=== PATIENT | female | born 1985 | race African-American/Black ===

== ENCOUNTER 2018-03-10 15:43 | Observation (INO) ==
[2018-03-10] MEDS ORDERED: PHENERGAN INJ 25 MG IV ONE (17:13)
[2018-03-10] MEDS ORDERED: NS 1000 ML 1,000 ML IV ONE ×2 (17:13→20:25)
[2018-03-10] MEDS ORDERED: DEMEROL INJ IVP ONE (17:13)
--- NOTE | 2018-03-10 17:15 | DR.GENAD ---
HPI - HPI Comment HPI Comment: PAIN DIFFUSE, NON RADIATING ASSOCIATED WITH WEAKNESS. GETTING WORSE. NO FEVER OR DYSURIA. NOT HOLDING MEDS OR FLUIDS. - Complaint/Symptoms Chief Complaint Doctors Comments: ABDOMINAL PAIN WITH N/V/D TIMES 3 DAYS Chief Complaint:: PATIENT STATED THAT SHE BEING HAVING N/V/D THAT STARTED THIS MORNING. SHE STATED THAT SHE HAS NOT BEEN ABLE TO EAT OR DRINK IN 3 DAYS. SHE STATED THAT SHE STARTED HAVING ABD. PAIN TIMES 3 DAYS. - Nurses notes reviewed Nurses Notes Review: Yes - Source History Provided: Patient, EMS - Mode of Arrival Mode of Arrival: Stretcher - Timing Onset of Chief Complaint: 03/07/18 Came on: Suddenly - Duration Duration: Constant Duration: Days - Severity Severity: Moderate PMH - PMH Past Medical History: Yes Past Medical History: Anemia Past Surgical History: Yes Surgical History: - Family History History of Family Medical Conditions: Yes Family Medical History: Diabetes Mellitus, Cancer, OR, Hypertension - Social History Does patient currently use any type of tobacco product: Yes Have you used tobacco products in the last 12 months: Yes Type of Tobacco Use: Cigarettes Does any household member use tobacco: No Alcohol Use: None Do you use any recreational Drugs:: No Lives With: Family Lives Where: Home - infectious screening In the last 2 months have you had wt loss of >10#?: NO Have you had fever, night sweats or hemotysis?: No Have you traveled outside the country in the last 6 months?: No Isolation: Standard ROS - Review of Systems Constitutional: Weakness, Fatigue. negative: Chills, Fever Eyes: No Symptoms Reported. negative: Eye Pain, Discharge ENTM: negative: Ear Pain, Nose Discharge, Nose Congestion, Throat Pain Respiratoy: negative: Productive Cough, Non-Productive Cough, Short of Breath, Wheezing, Hemoptysis Cardiovascular: No Symptoms Reported Gastrointestinal/Abdominal: Abdominal Pain, Diarrhea, Nausea, Vomiting Genitourinary: No Symptoms Reported. negative: Dysuria, Frequency, Hematuria Neurological: No Symptoms Reported Musculoskeletal: No Symptoms Reported Integumentary: No Symptoms Reported Hematologic/Lymphatic: No Symptoms Reported Endocrine: No Symptoms Reported All Other Systems: Reviewed and Negative PE - General Limitations: No Limitations General Appearance: Alert - Head Head Exam: Normal Inspection - Eyes Eye exam: Normal Appearance - ENT ENT Exam: Normal External Ear Exam External Ear Exam: Normal External Inspection TM/Canal Exam: Bilateral Normal Nose Exam: Normal Nose Exam Mouth Exam: Normal Inspection Throat Exam: Normal Inspection - Neck Neck Exam: Trachea Midline - Chest Chest Inspection: Symmetric Chest Wall Rise - Respiratory Respiratory Exam: Normal Lung Sounds Bilat Respiratory Exam: Bilateral Clear to Auscultation - Cardiovascular Cardiovascular Exam: Regular Rate, Normal Rhythm, Normal Heart Sounds - Abdominal Exam Abdominal Exam: Normal Bowel Sounds, Soft, Tenderness Abdominal Tenderness: Diffuse, Moderate - Extremities Extremities Exam: Normal Inspection - Back Back Exam: Normal Inspection - Neurologic Neurological Exam: Alert, Oriented X3, CN II-XII Intact. negative: Motor Sensory Deficit - Psychiatric Psychiatric Exam: Anxious - Skin Skin Exam: Normal Color - Vital Signs Vitals: Temperature 97.4 F Pulse Rate 67 Respiratory Rate 20 Blood Pressure [Left Arm] 187/90 Blood Pressure [Right Arm] 103/63 Blood Pressure 136/88 O2 Sat by Pulse Oximetry 98 MDM - Differential Diagnosis Differential Diagnosis: GASTRENTERITIS, DEHYDRATION, BOWEL OBSTRUCTION, ABDOMINAL PAIN. Course - Treatment Treatment: SEE ORDERS. IV FLUIDS AND NAUSEA MED IN ED. - Consultation Consultation Comments: DISCUSS PATIENT WITH DR. CHAVEZ. HE WILL ADMIT PATIENT. - Education/Counseling Education/Counseling: Patient, Education Educated On: Diagnosis ROR - Labs Reviewed Laboratory Results Reviewed?: Yes Result Diagrams: 03/11/18 04:53 03/12/18 00:15 - XRAY XRAY Interpreted by: Radiologist XRAY Findings: REPORT DISCUSS WITH PATIENT. - Diagnosis Discharge Problem: Dehydration, Gastroenteritis Abdominal pain Qualifiers: Abdominal location: generalized Qualified Code(s): R10.84 - Generalized abdominal pain - Discharge Plan Disposition: ADMITTED INPATIENT Condition: Stable
[2018-03-10] MEDS ORDERED: NS 1000 ML 1,000 ML ONE ×2 (17:17→20:37)
[2018-03-10] MEDS ORDERED: PHENERGAN INJ 25 MG ONE (17:17)
[2018-03-10] MEDS ORDERED: DEMEROL INJ ONE (17:18)
[2018-03-10 17:28] LABS: BASOPHILS # (AUTO) 0.1 X10^3/uL (0.0-0.1); BASOPHILS % (AUTO) 0.3 % (0.2-1.0); HEMATOCRIT 34.6 % (36.0-47.0); HEMOGLOBIN 11.3 g/dL (12.0-16.0); LYMPHOCYTES # (AUTO) 1.8 X10^3/uL (1.3-2.9); MEAN CORPUSCULAR HGB CONC 32.6 g/dL (33.0-35.0); MEAN CORPUSCULAR VOLUME 76.8 fL (80.0-100.0); MEAN PLATELET VOLUME 8.4 fL (7.4-11.0); MONOCYTES # (AUTO) 0.7 x10^3/uL (0.3-0.8); MONOCYTES % (AUTO) 2.6 % (0.0-13.0); NEUTROPHILS # (AUTO) 23.5 x10^3/uL (2.2-4.8); NEUTROPHILS % (AUTO) 90.1 % (42.0-75.0); PLATELET COUNT 429 X10^3/uL (150.0-450.0); RED CELL DISTRIBUTION WIDTH 17.9 % (11.6-16.5)
[2018-03-10 17:36] LABS: ALBUMIN 4.1 g/dL (3.4-5.0); ALKALINE PHOSPHATASE 76 Units/L (46-116); AMYLASE 59 Units/L (25-115); ASPARTATE AMINO TRANSFERASE 14 Units/L (15-37); BLOOD UREA NITROGEN 11 mg/dL (7-18); CALCIUM 8.9 mg/dL (8.5-10.1); CARBON DIOXIDE 23.7 mmol/L (21-32); CHLORIDE 106 mmol/L (98-107); COR NA(FOR HYPERGLY) 144 mmol/L (136-145); CREATININE 0.75 mg/dL (0.55-1.02); LIPASE 63 Units/L (73-393); SODIUM 143 mmol/L (136-145); TOTAL PROTEIN 8.5 g/dL (6.4-8.2); eGFR NON BLACK RACES > 60 (>60)
[2018-03-10 17:41] LABS: ANISOCYTOSIS SLIGHT; HYPOCHROMASIA 1+; PLATELET MORPHOLOGY COMMENT NORMAL (NORMAL)
[2018-03-10 17:44] LABS: ALANINE AMINOTRANSFERASE 14 Units/L (12-78)
--- NOTE | 2018-03-10 18:05 | CT ---
HISTORY: Nausea, vomiting, diarrhea, abdominal pain Study: CT abdomen and pelvis without contrast Comparison: None Technique: Multiple axial images of the abdomen and pelvis were obtained from the lung bases to the pubic symphy sis without the administration of IV contrast. Findings: The visualized portions of the lung bases are unremarkable. The liver, spleen, pancreas, kidneys, and adrenal glands are unremarkable in their CT appearance. The gallbladder is unremarkable in its CT appearance. No significant mesenteric lymphadenopathy or stra nding can be observed. No free fluid or free air is seen within the abdomen. No bowel wall thickeni ng or bowel dilatation is present. The colon is unremarkable. The appendix is normal in appearance a nd without inflammatory change. The urinary bladder is grossly unremarkable. The bony structures are grossly intact. IMPRESSION: 1. No acute intra-abdominal abnormality evident. Reported By:
[2018-03-10] MEDS ORDERED: TYLENOL 325 MG TAB PO PRN (20:23)
[2018-03-10] MEDS ORDERED: PEPCID 20 MG IV PREMIX* 20 MG/50 ML BAG IV PRN (20:23)
[2018-03-10] MEDS ORDERED: ZOFRAN INJ 4 MG VIAL ONE (20:46)
[2018-03-10] MEDS: ZOFRAN INJ 4 MG VIAL IVP PRN (20:47)
[2018-03-10 21:33] VITALS: BMI 23.4
[2018-03-10] MEDS: PHENERGAN INJ 25 MG IVP PRN (22:14)
[2018-03-11 01:07] LABS: BILIRUBIN,URINE NEGATIVE (NEGATIVE); BLOOD/HEMOGLOBIN,URINE 1+ (NEGATIVE); GLUCOSE, URINE NEGATIVE (NEGATIVE); KETONES,URINE 4+ (NEGATIVE); LEUKOCYTE ESTERASE ,URINE NEGATIVE (NEGATIVE); NITRITES,URINE NEGATIVE (NEGATIVE); PROTEIN,URINE 1+ (NEGATIVE); UROBILINOGEN,URINE NORMAL (NORMAL)
[2018-03-11 01:24] LABS: APPEARANCE,URINE HAZY (CLEAR); BACTERIA,URINE TRACE /HPF (NEGATIVE); COLOR,URINE YELLOW (YELLOW); MUCUS,URINE FEW /HPF (NEGATIVE); RBC,URINE 0-2 /HPF (NONE SEEN); SQUAMOUS EPITHELIAL CELL,UR MODERATE /HPF (NEGATIVE)
[2018-03-11 01:35] LABS: STOOL FOR WBC NEGATIVE (NEGATIVE)
[2018-03-11] MEDS ORDERED: NS 1000 ML 1,000 ML ONE ×2 (03:52→20:09)
[2018-03-11] MEDS: ZOFRAN INJ 4 MG VIAL IVP PRN (03:55)
[2018-03-11] MEDS: MORPHINE SULFATE INJ 2 MG INJ IVP PRN ×2 (03:55→08:39)
[2018-03-11 05:58] LABS: BASOPHILS # (AUTO) 0.1 X10^3/uL (0.0-0.1); BASOPHILS % (AUTO) 0.4 % (0.2-1.0); EOSINOPHILS % (AUTO) 0.1 % (0.9-2.9); HEMATOCRIT 29.7 % (36.0-47.0); HEMOGLOBIN 9.6 g/dL (12.0-16.0); LYMPHOCYTES # (AUTO) 1.9 X10^3/uL (1.3-2.9); LYMPHOCYTES % (AUTO) 10.3 % (21.0-51.0); MEAN CORPUSCULAR HEMOGLOBIN 25.1 pg (27.0-34.0); MEAN CORPUSCULAR HGB CONC 32.5 g/dL (33.0-35.0); MEAN CORPUSCULAR VOLUME 77.3 fL (80.0-100.0); MEAN PLATELET VOLUME 8.6 fL (7.4-11.0); MONOCYTES # (AUTO) 0.6 x10^3/uL (0.3-0.8); MONOCYTES % (AUTO) 3.3 % (0.0-13.0); NEUTROPHILS % (AUTO) 85.9 % (42.0-75.0); PLATELET COUNT 103 X10^3/uL (150.0-450.0); RED BLOOD COUNT 3.83 X10^6/uL (3.5-5.4); RED CELL DISTRIBUTION WIDTH 18.1 % (11.6-16.5); WHITE BLOOD COUNT 18.6 X10^3/uL (3.6-10.0)
[2018-03-11 06:03] LABS: ALANINE AMINOTRANSFERASE 11 Units/L (12-78); ALBUMIN 3.3 g/dL (3.4-5.0); ALKALINE PHOSPHATASE 65 Units/L (46-116); ASPARTATE AMINO TRANSFERASE 13 Units/L (15-37); BLOOD UREA NITROGEN 7 mg/dL (7-18); CALCIUM 7.8 mg/dL (8.5-10.1); CARBON DIOXIDE 22.8 mmol/L (21-32); CHLORIDE 109 mmol/L (98-107); COR CA(FOR HYPOALB) 8.4 mg/dL (8.5-10.1); CREATININE 0.67 mg/dL (0.55-1.02); SODIUM 144 mmol/L (136-145); eGFR NON BLACK RACES > 60 (>60)
[2018-03-11 06:46] LABS: PLATELET MORPHOLOGY COMMENT NORMAL (NORMAL)
[2018-03-11] MEDS ORDERED: POTASSIUM CHLORIDE LIQ 20 MEQ UDC PO PRN (07:15)
[2018-03-11] MEDS ORDERED: K-LYTE EFFERVESCENT PO PRN (07:15)
[2018-03-11] MEDS ORDERED: POTASSIUM CHL 60 MEQ/NS 0.45% 500 ML IV PRN (07:15)
[2018-03-11] MEDS ORDERED: POTASSIUM CHL 40 MEQ/NS 0.45% 500 ML IV PRN (07:15)
[2018-03-11] MEDS: PHENERGAN INJ 25 MG IVP PRN ×3 (08:39→21:42)
[2018-03-11] MEDS: MAGNESIUM SULFATE 1 GRAM/100 mL PREMIX 1 GM/100 ML BAG IV PRN ×2 (08:42→10:09)
[2018-03-11] MEDS ORDERED: PHARMACY CONSULT - DOSE _____ XX SCH (10:00)
[2018-03-11] MEDS ORDERED: NS 100 ML IV 100 ML with VENOFER 400 MG IV NR ×2 (10:00)
[2018-03-11] MEDS: K-RIDER 10 MEQ/NS 100 ML 10 MEQ/100 ML BAG IV PRN ×4 (15:04→19:52)
[2018-03-12 05:09] LABS: CRYPTOSPORIDIUM PARVUM ANTIGEN NEGATIVE (NEGATIVE); GIARDIA LAMBLIA ANTIGEN NEGATIVE (NEGATIVE)
[2018-03-12 11:14] VITALS: BP 162/95
== END 2018-03-12 12:50 | disposition home or self-care (01) ==
LOC: ER 15:43 → MED/SURG 15:43
PROVIDERS: ADMIT Obstetrics & Gynecology Obstetrics; ATTEND Obstetrics & Gynecology Obstetrics
DX: E86.0 Dehydration; R10.84 Generalized abdominal pain; K52.89 Other specified noninfective gastroenteritis and colitis
CPT/HCPCS: 36415; 74176; 80053; 81001; 82150; 83630; 83690; 83735; 84132; 85025; 87045; 87328; 87329; 87336; 87427; 87449; 87493; 87899; 96365; 96367; 96374; 96375; 99282; 99284; A4222; G0378; J1756; J2175; J2270; J2405; J2550; J3475; J3480; J7030; J7050